=== PATIENT | male | born 1990 | race Caucasian/White ===

== ENCOUNTER 2022-12-18 19:46 | Emergency (ER) | payer BC ==
[~2022-12-18] VITALS: Ht 195.5 cm; Wt 170.1 kg
[~2022-12-18 19:46] MED LIST: ACULAR 3 ML3 M1 OP; TOBREX 5 ML5 ML OPH; TYLENOL W/CODEI1 TA2 PO
== END 2022-12-18 22:25 | disposition home or self-care (01) ==
LOC: ED 19:46
DX: S81.011A Laceration without foreign body, right knee, initial encounter (principal); Z91.040 Latex allergy status; Z90.89 Acquired absence of other organs; W18.39XA Other fall on same level, initial encounter; Y93.89 Activity, other specified; Y92.89 Other specified places as the place of occurrence of the external cause; Y99.8 Other external cause status

== ENCOUNTER → 2023-01-02 | Day surgery (SDC) | payer BC ==
[~2023-01-02] VITALS: Ht 195.5 cm; Wt 158.8 kg
[~2023-01-02] MED LIST changes: +CEPHALEXIN500 M1 PO; +SEPTDS PO
[2023-01-02 10:33] VITALS: BP 134/87
[2023-01-02 12:35] VITALS: BP 129/70
[2023-01-02 12:50] VITALS: BP 126/73
[2023-01-02 13:03] VITALS: BP 131/80
== END ==
LOC: SDC 01-01 15:30
PROVIDERS: ATTEND Orthopaedic Surgery
DX: S81.001A Unspecified open wound, right knee, initial encounter (principal); L02.415 Cutaneous abscess of right lower limb; J45.909 Unspecified asthma, uncomplicated; X58.XXXA Exposure to other specified factors, initial encounter; Y92.89 Other specified places as the place of occurrence of the external cause; Y93.89 Activity, other specified; Y99.8 Other external cause status

== ENCOUNTER 2023-04-15 23:10 | Emergency (ER) | payer BC ==
[~2023-04-15] VITALS: Ht 195.5 cm; Wt 158.8 kg
[2023-04-15 23:44] LABS: BILIRUBIN Negative (Negative); BLOOD 3+ (Negative); CLARITY Clear (Clear); COLOR Dark Yellow (Yellow); GLUCOSE Negative (Negative); KETONE 1+ (Negative); LEUKO ESTERASE Negative (Negative); NITRITE Negative (Negative); PH 5.5 (4.5-8.0); SPECIFIC GRAVITY >= 1.030 (1.001-1.030)
[2023-04-16 00:13] LABS: BASO % 0.2 % (0.0-1.0); EOS % 0.4 % (1.0-4.0); HEMATOCRIT 43.7 % (42.0-52.0); LYMPH # 0.9 10*3/uL (1.3-4.4); LYMPH % 11.1 % (27.0-41.0); MEAN CELL VOLUME 85.5 fl (80.0-94.0); MEAN CORPUSCULAR HGB 29.2 pg (27.0-31.0); MEAN CORPUSCULAR HGB CONC 34.1 g/dl (33.0-37.0); MEAN PLATELET VOLUME 9.7 fl (9.6-12.3); MONO # 0.4 10*3/uL (0.1-1.0); MONO % 5.2 % (3.0-9.0); NEUT # 6.8 10*3/uL (2.3-7.9); NEUT % 82.5 % (47.0-73.0); PLATELET COUNT AUTOMATED 283 10*3/uL (130-400); RED BLOOD COUNT 5.11 10*6/uL (4.50-5.90); RED CELL DISTRI WIDTH 13.2 % (0-14.5); WHITE BLOOD COUNT 8.3 10*3/uL (4.8-10.8)
[2023-04-16 00:26] LABS: BACTERIA 3+; RBC 31-40 rbc/hpf (0-2)
[2023-04-16 00:36] LABS: ALKALINE PHOSPHATASE 81 U/L (46-116); BUN 13 mg/dl (9-23); CHLORIDE 106 mmol/L (98-107); POTASSIUM 3.7 mmol/L (3.4-5.1); SGPT/ALT 40 U/L (10-49); TOTAL PROTEIN 7.4 gm/dL (6.0-8.0)
[2023-04-16] MEDS ORDERED: CIPRO500 MG PO (03:22)
[2023-04-16] MEDS ORDERED: PERCOCET 5-3251 EACH PO (03:22)
== END 2023-04-16 03:43 | disposition home or self-care (01) ==
LOC: ED 23:10
PROVIDERS: Emergency Medicine
DX: N20.0 Calculus of kidney (principal); R82.71 Bacteriuria; R11.0 Nausea; J45.909 Unspecified asthma, uncomplicated; Z90.89 Acquired absence of other organs; Z98.890 Other specified postprocedural states

== ENCOUNTER → 2023-05-05 | Outpatient (CLI) | payer BC ==
[~2023-05-05] MED LIST changes: +CIPRO500 MG PO; +PERCOCET 5-3251 EACH PO
== END | disposition home or self-care (01) ==
LOC: US 09:43
PROVIDERS: ATTEND Urology
DX: N20.0 Calculus of kidney (principal)